=== PATIENT | male | born 1995 | race Caucasian/White ===

== ENCOUNTER 2018-09-23 00:48 | Emergency (ER) | payer SELFPAY ==
[~2018-09-23] VITALS: Ht 177.8 cm; Wt 59.0 kg
[2018-09-23 00:57] VITALS: BP 108/63
== END 2018-09-23 01:08 | disposition left against medical advice (07) ==
LOC: EDBD 00:48 → ER 00:56
DX: F41.9 Anxiety disorder, unspecified (principal); Z53.21 Procedure and treatment not carried out due to patient leaving prior to being seen by health care provider
CPT/HCPCS: 93005

== ENCOUNTER 2019-02-26 16:30 | Emergency (ER) | payer MEDICAID ==
[~2019-02-26] VITALS: Ht 177.8 cm; Wt 65.8 kg
[2019-02-26 16:36] VITALS: BP 134/88
== END 2019-02-26 18:31 | disposition left against medical advice (07) ==
LOC: EDBD 16:30 → ER 16:30
DX: F41.9 Anxiety disorder, unspecified (principal); F19.10 Other psychoactive substance abuse, uncomplicated

== ENCOUNTER 2025-03-17 00:32 | Emergency (ER) | payer SELFPAY ==
[~2025-03-17] VITALS: Ht 175.3 cm; Wt 59.1 kg
[2025-03-17 00:40] VITALS: BP 137/87; PULSE 82; RESP 18; TEMP 98.2; O2SAT 99
--- NOTE | 2025-03-17 00:59 | ED.PDOC ---
History of Present Illness HPI Comments 30-year-old male who came to ER via EMS for inhalational injury. Patient was using some expanding spray foam earlier, and it might have accidentally got into contact with the his cigarettes. As he smoked the cigarettes he felt a burning sensation over his mouth and throat, with chest tightness. Patient admits to have taken mushrooms 2 days ago. REVIEW OF SYSTEMS: General: No fever, no chills, or fatigue HEENT: No sore throat, no earache, no congestion, no neck pain. Cardiac: + chest pain. No palpitations. Lungs: + shortness of breath, + cough. GI: No nausea, no vomiting, no diarrhea, no constipation, no abdominal pain : No dysuria, frequency, or urgency. No hematuria. Musculoskeletal: No joint pain , no joint swelling, no extremity edema. Skin: No rash, no itching. Neuro: No headache, no dizziness, no weakness (And as sated in HPI) PHYSICAL EXAM: General: Awake, alert and oriented. No acute distress. Skin: Skin in warm, dry and intact. Appropriate color for ethnicity. HEENT: The head is normocephalic and atraumatic. Conjunctivae are clear without exudates or hemorrhage. Sclera is non-icteric. Eyelids are normal in appearance without swelling or lesions. Oral mucosa is pink and moist Neck: The neck is supple with normal range of motion. No JVD. Cardiac: Heart rate and rhythm are normal. No murmurs, gallops, or rubs are auscultated. Respiratory: No signs of respiratory distress. Lung sounds are clear in all lobes bilaterally without rales, rhonchi, or wheezes. Abdominal: Abdomen is soft, non-tender without distention, guarding or rigidity. Bowel sounds are present and normoactive in all four quadrants. Extremities: Lower extremities without edema. Neurological: The patient is awake, alert and oriented to person, place, and time with normal speech. Speech is clear. There is no facial asymmetry. Psychiatric: Appropriate mood and affect. Good judgement and insight. Chief Complaint: Inhalational injury Time Seen by MD: 00:58 Reviewed Notes: Nurses Notes Allergies: Coded Allergies: NO KNOWN ALLERGIES (Unverified , 02/26/19) Information Source: Patient, Emergency Med Personnel Mode of Arrival: EMS Past Medical History PAST MEDICAL HISTORY: Denies Surgical History: Denies all surgeries Family History Family History: Reviewed,noncontributory to illness Social History Smoker: Non-Smoker Alcohol: Denies ETOH Use Drugs: Other (Mushrooms) Lives In: Home Was a procedure done? Was a procedure done?: No Differential Dx Considerations may include: substance abuse, inhalational injury, schizophrenia X-Ray, Labs, Meds, VS Vital Signs Date Time Temp Pulse Resp B/P (MAP) Pulse Ox O2 Delivery O2 Flow Rate FiO2 03/17/25 00:40 98.2 82 18 137/87 99 98.2 Current Medications Medications (Trade) Dose Ordered Sig/[place] Route Start Time Stop Time Status Last Admin Albuterol (Ventolin Medneb) 2.5 mg ONCE ONCE NEB 03/17/25 01:00 03/17/25 01:01 DC 03/17/25 01:12 Time of 1ST Reevaluation: 00:53 Reevaluation 1ST: Unchanged Patient Education/Counseling: Need For Follow Up Family Education/Counseling: No Family Present SEPSIS Sepsis Screen Physician Orders Electrocardigram (03/17/25 00:51) Vital Signs Date Time Temp Pulse Resp B/P (MAP) Pulse Ox O2 Delivery O2 Flow Rate FiO2 03/17/25 00:40 98.2 82 18 137/87 99 98.2 Medications Medications Dose Ordered Sig/[place] Route Start Time Stop Time Status Last Admin Dose Admin Albuterol 2.5 mg ONCE ONCE NEB 03/17/25 01:00 03/17/25 01:01 DC 03/17/25 01:12 Departure 1 Departure Time of Disposition: 03:22 Impression: Primary Impression: Inhalation injury Disposition: 07 LEFT AWOL/ELOPED Condition: Other Comments Patient was seen and evaluated in the ambulance [place] on arrival. Discussed plan of care with patient. He eloped from the emergency department prior to completing care. Critical Care Note Critical Care Time?: No Stability Stability form required: No Heart Score Heart Score: Heart Score Response (Comments) Value History N/A 0 EKG N/A 0 Age N/A 0 Risk Factors N/A 0 Troponin N/A 0 Total 0 I personally scribed for DON BOSCH MD ([email or web address]) on 03/17/25 at 00:59. Electronically submitted by Joce Kuhn ([email or web address]). DON BOSCH MD Mar 17, 2025 00:59
[2025-03-17] MEDS: ALBUTEROL SULF 2.5 MG/0.5ML(0.5%) NEB SOLN NEB ONE (01:12)
== END 2025-03-17 02:54 | disposition left against medical advice (07) ==
LOC: EDBD 00:32 → ER 00:32
DX: T27.3XXA Burn of respiratory tract, part unspecified, initial encounter (principal); F17.210 Nicotine dependence, cigarettes, uncomplicated; X08.8XXA Exposure to other specified smoke, fire and flames, initial encounter; Y93.89 Activity, other specified; Y92.89 Other specified places as the place of occurrence of the external cause; Y99.8 Other external cause status
CPT/HCPCS: 94640